=== PATIENT | male | born 1975 | race Caucasian/White ===

== ENCOUNTER 2019-02-07 11:21 | Emergency (ER) | payer BC ==
[2019-02-07 12:18] VITALS: BP 108/79
--- NOTE | 2019-02-07 13:13 | UC ---
Knee Pain HPI - HPI Summary HPI Summary: Pt states he thinks he dislocated his right knee yesterday when he twisted it. He has a history of knee dislocations where it "pops" back into place spontaneously. - History of Current Complaint Chief Complaint: UCLowerExtremity Stated Complaint: KNEE INJURY Time Seen by Provider: 02/07/19 12:45 Hx Obtained From: Patient Onset/Duration: Sudden Onset Severity Initially: Mild Severity Currently: Mild Pain Intensity: 7 Character: Dull, Aching Aggravating Factor(s): Movement Alleviating Factor(s): Rest Associated Signs And Symptoms: Positive: Swelling - Mildly warm to touch Able to Bear Weight: Yes - Allergies/Home Medications Allergies/Adverse Reactions: Allergies Allergy/AdvReac Type Severity Reaction Status Date / Time Penicillins Allergy Hives Verified 02/07/19 12:18 Home Medications: Home Medications NK [No Home Medications Reported] 02/07/19 [History Confirmed 02/07/19] PMH/Surg Hx/FS Hx/Imm Hx - Additional Past Medical History Additional PMH: Hx of numerous knee dislocations, not that he sought treatment for in an ER or with Ortho. Previously Healthy: Yes - Surgical History Surgical History: Yes Surgery Procedure, Year, and Place: r knee - Family History Known Family History: Positive: Non-Contributory - Social History Alcohol Use: Occasionally Substance Use Type: Marijuana Smoking Status (MU): Heavy Every Day Tobacco Smoker Review of Systems All Other Systems Reviewed And Are Negative: Yes Motor: Positive: Negative Neurovascular: Positive: Negative Musculoskeletal: Positive: Other: - Mild pain, swelling and warmth to right knee. Is Patient Immunocompromised?: No Physical Exam Triage Information Reviewed: Yes Appearance: Well-Appearing, No Pain Distress, Well-Nourished Vital Signs: Initial Vital Signs Temp 98.5 F 02/07/19 12:15 Pulse 55 02/07/19 12:15 Resp 15 02/07/19 12:15 BP 108/79 02/07/19 12:15 Pulse Ox 100 02/07/19 12:15 Vital Signs Reviewed: Yes Musculoskeletal: Positive: Strength Intact, ROM Intact - Right knee mildly swollen and warm to touch, no deformity. Patellar and knee ligaments intact, able to raise leg up without difficulty, good periph pulses, neurosensation, cap refill Neurological: Positive: Alert, Muscle Tone Normal Psychological Exam: Normal Skin: Positive: Other - See notes above. Knee Pain Course/Dx - Course Course Of Treatment: Comfortable here Right knee x-ray:FINDINGS: BONE DENSITY: Normal. BONES: There is a bipartite patella versus a chronic ununited fracture of the medial patella. There is no acute fracture. JOINTS: There is moderate to advanced tricompartmental osteoarthritis. ALIGNMENT: There is no dislocation. SOFT TISSUES: Unremarkable. OTHER FINDINGS: None. IMPRESSION: 1. OSTEOARTHRITIS. 2. 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 3. NO ACUTE OSSEOUS INJURY. IF SYMPTOMS PERSIST, RECOMMEND REPEAT IMAGING. Pt wears a knee sleeve when working. He states while in the room his knee popped and the "toothache" feeling in his knee resolved. I advised him to follow up with the orthopedist for his chronic knee problems. He denies fracturing his patella in his lifetime. - Differential Dx/Diagnosis Provider Diagnosis: Right knee sprain Discharge - Sign-Out/Discharge Documenting (check all that apply): Patient Departure All imaging exams completed and their final reports reviewed: Yes - Discharge Plan Condition: Fair Disposition: HOME Patient Education Materials: Knee Sprain (DC) Referrals: Nadya LA,Burke Che [Primary Care Provider] - Dinesh Vu MD [Medical Doctor] - Additional Instructions: Take Ibuprofen 600 mg every 8 hours for pain and swelling, apply warm moist compresses to the knee, limit walking stairs as much as possible. Follow up with the orthopedist in 2-3 days if worsening symptoms and in the next week or 2 for chronic knee problems. - Billing Disposition and Condition Condition: FAIR Disposition: Home
== END 2019-02-07 14:10 | disposition home or self-care (01) ==
LOC: UCEAST 11:21
DX: S83.91XA Sprain of unspecified site of right knee, initial encounter (principal); X50.9XXA Other and unspecified overexertion or strenuous movements or postures, initial encounter; Y92.9 Unspecified place or not applicable; Z88.0 Allergy status to penicillin
CPT/HCPCS: 99211; G0463